=== PATIENT | female | born 1980 | race African-American/Black ===

== ENCOUNTER 2018-11-13 20:26 | Emergency (ER) | payer OTHER ==
[2018-11-13 20:57] VITALS: BMI 25.7
--- NOTE | 2018-11-13 22:02 | PDOC ---
History of Present Illness - General Chief Complaint: Back Pain Stated Complaint: INJURY Time Seen by Provider: 11/13/18 21:37 History Source: Patient Exam Limitations: No Limitations - History of Present Illness Initial Comments: 11/13/18 21:56 38 year old female with no significant medical or surgical history presents with complaints of back injury after being hit by ceiling that fell onto her back. Patient reports ceiling fell onto her back at home. Denies loc, dizziness nausea or vomiting. Severity: reports: moderate Pain Location: reports: back, neck Method of Injury: Yes: direct blow Loss of Consciousness: no loss of consciousness Associated Symptoms (Fall): denies symptoms Past History - Travel Traveled outside of the country in the last 30 days: No Close contact w/someone who was outside of country & ill: No - Past Medical History Allergies/Adverse Reactions: Allergies Allergy/AdvReac Type Severity Reaction Status Date / Time No Known Allergies Allergy Verified 11/13/18 20:58 Home Medications: Ambulatory Orders Bacitracin - [Bacitracin Topical Ointment -] 1 applic TP BID #1 applic 11/13/18 Ibuprofen 600 mg PO TID #20 tablet 11/13/18 Asthma: No Cancer: No Cardiac Disorders: No CVA: No COPD: No CHF: No - Suicide/Smoking/Psychosocial Hx Smoking History: Never smoked Information on smoking cessation initiated: No Hx Alcohol Use: No Drug/Substance Use Hx: No Trauma Specific PMHX - Complaint Specific PMHX Arthritis: No Back Injury: No Neck Injury: No Hx Sacro Iliac Joint Dysfunction: No Review of Systems - Review of Systems Able to Perform ROS?: Yes Is the patient limited Icelandic proficient: No Constitutional: No: Chills, Diaphoresis, Fever, Loss of Appetite, Malaise, Weakness HEENTM: No: Nose Pain, Nose Congestion, Difficulty Swallowing, Mouth Swelling Respiratory: No: Cough, Shortness of Breath, Wheezing Cardiac (ROS): No: Edema ABD/GI: No: Nausea, Poor Appetite : No: Burning, Hematuria, Pain Musculoskeletal: Yes: Back Pain. No: Muscle Pain Integumentary: Yes: Bruising, Erythema Neurological: No: Headache Psychiatric: No: Depression *Physical Exam - Vital Signs Last Vital Signs Temp Pulse Resp BP Pulse Ox 97.2 F L 68 20 101/54 L 99 11/13/18 20:55 11/13/18 20:55 11/13/18 20:55 11/13/18 20:55 11/13/18 20:55 - Physical Exam General Appearance: Yes: Nourished, Appropriately Dressed. No: Apparent Distress HEENT: positive: FELISA, TMs Normal, Pharynx Normal Neck: positive: Supple. negative: Lymphadenopathy (R), Lymphadenopathy (L) Respiratory/Chest: positive: Lungs Clear, Normal Breath Sounds Cardiovascular: positive: Regular Rhythm, Regular Rate, S1, S2 Musculoskeletal: positive: Other (no mid spinal tenderness of spine, able to move all limbs freely.+ rom of shoulder without difficultyr). negative: CVA Tenderness, Vertebral Tenderness Extremity: positive: Normal Capillary Refill, Normal Range of Motion Integumentary: positive: Other (scrapes, abrasion to lateral thoracic area, and right upper arm) Neurologic: positive: cleaner greaser II-XII NML intact, Fully Oriented, Alert ED Treatment Course - RADIOLOGY Radiology Studies Ordered: Category Date Time Status SPINE-CERVICAL (2-3VIEWS) [RAD] Stat Radiology 11/13/18 21:55 Ordered SPINE-LUMBAR SACRAL [RAD] Stat Radiology 11/13/18 21:55 Ordered Medical Decision Making - Medical Decision Making 11/13/18 22:03 38 year old female with no significant medical or surgical history presents with complaints of back injury after being hit by ceiling that fell onto her back. Plan: xray to c-spine and lumbar spine 11/13/18 22:[address] order for follow up call for final results of xray rx: bacitracin *DC/Admit/Observation/Transfer Diagnosis at time of Disposition: Back injury Qualifiers: Encounter type: initial encounter Qualified Code(s): S39.92XA - Unspecified injury of lower back, initial encounter Abrasion of back Qualifiers: Encounter type: initial encounter - Discharge Dispostion Disposition: HOME Condition at time of disposition: Good Decision to Admit order: No - Prescriptions Prescriptions: Bacitracin - [Bacitracin Topical Ointment -] 1 applic TP BID #1 applic Ibuprofen 600 mg PO TID #20 tablet - Referrals Schedule a call back: xray Referrals: Wolf Higgins MD [Primary Care Provider] - - Patient Instructions Printed Discharge Instructions: DI for Low Back Pain Additional Instructions: May apply ice compress to both areas Return to emergency room for bowel or bladder dysfunction, numbness of tingling in limbs Call primary physician for follow up appointment - Post Discharge Activity Forms/Work/School Notes: Back to Work
[2018-11-13 23:06] VITALS: BP 104/58; PULSE 72; TEMP 97.8
== END 2018-11-13 23:06 | disposition home or self-care (01) ==
LOC: JERFT 20:26
DX: S39.82XA Other specified injuries of lower back, initial encounter (principal); W20.8XXA Other cause of strike by thrown, projected or falling object, initial encounter; Y93.89 Activity, other specified; Y92.038 Other place in apartment as the place of occurrence of the external cause; Y99.8 Other external cause status
CPT/HCPCS: 72050-TC-FY; 72100-TC-FY; 99281-25

== ENCOUNTER 2019-01-18 13:51 | Emergency (ER) | payer OTHER ==
[2019-01-18 14:19] VITALS: BP 111/43; PULSE 77; TEMP 98.1; BMI 28.7
[2019-01-18 17:21] LABS: EPI CELLS 1.1 /HPF (0-5/HPF); HYALINE CASTS 3 /lpf (0-8); URINE APPEARANCE CLEAR; URINE BACTERIA 20.6 /hpf (NEGATIVE); URINE BILIRUBIN NEGATIVE (NEGATIVE); URINE COLOR YELLOW; URINE GLUCOSE (UA) NEGATIVE (NEGATIVE); URINE KETONE TRACE (NEGATIVE); URINE LEUK ESTERASE NEGATIVE (NEGATIVE); URINE NITRITE NEGATIVE (NEGATIVE); URINE PROTEIN NEGATIVE (NEGATIVE); URINE RBC 7 /hpf (0-4); URINE WBC 1 /hpf (0-5)
[2019-01-18 17:29] LABS: BASO % 0.5 % (0-2.0); EOS % 2.5 % (0-4.5); HEMATOCRIT 38.2 % (32.4-45.2); LYMPH % 32.5 % (8-40); MCH 31.9 pg (25.7-33.7); MEAN CELL VOLUME 93.9 fl (80-96); MEAN PLT VOLUME 10.8 fl (7.5-11.1); MONO % 7.7 % (3.8-10.2); NEUT % 56.8 % (42.8-82.8); PLATELET COUNT 160 K/MM3 (134-434); RBC 4.06 M/mm3 (3.60-5.2); RDW 13.1 % (11.6-15.6); WHITE BLOOD COUNT 4.2 K/mm3 (4.0-10.0)
[2019-01-18 17:51] LABS: ALBUMIN 3.8 g/dl (3.4-5.0); BILIRUBIN,TOTAL 0.2 mg/dL (0.2-1); BLOOD UREA NITROGEN 8.5 mg/dL (7-18); CALCIUM 8.7 mg/dL (8.5-10.1); CREATININE 0.7 mg/dL (0.55-1.3); TOT PROT 7.2 g/dl (6.4-8.2)
--- NOTE | 2019-01-18 19:10 | PDOC ---
History of Present Illness - General Chief Complaint: Vaginal Bleeding Stated Complaint: VAGINAL BLEEDING Time Seen by Provider: 01/18/19 14:54 History Source: Patient Exam Limitations: No Limitations Past History - Travel Traveled outside of the country in the last 30 days: No Close contact w/someone who was outside of country & ill: No - Past Medical History Allergies/Adverse Reactions: Allergies Allergy/AdvReac Type Severity Reaction Status Date / Time No Known Allergies Allergy Verified 11/13/18 20:58 Home Medications: Ambulatory Orders Bacitracin - [Bacitracin Topical Ointment -] 1 applic TP BID #1 applic 11/13/18 Ibuprofen 600 mg PO TID #20 tablet 11/13/18 Bacitracin - [Bacitracin Topical Ointment -] 1 applic TP BID #1 applic 11/15/18 Ibuprofen 600 mg PO TID #20 tablet 11/15/18 Asthma: No Cancer: No Cardiac Disorders: No CVA: No COPD: No CHF: No - Suicide/Smoking/Psychosocial Hx Smoking History: Never smoked Information on smoking cessation initiated: No Hx Alcohol Use: No Drug/Substance Use Hx: No Review of Systems - Review of Systems Able to Perform ROS?: Yes Comments:: 01/18/19 19:04 CONSTITUTIONAL: Absent: fever, chills, diaphoresis, generalized weakness, malaise, loss of appetite HEENT: Absent: rhinorrhea, nasal congestion, throat pain, throat swelling, difficulty swallowing, mouth swelling, ear pain, eye pain, visual Changes CARDIOVASCULAR: Absent: chest pain, loss of consciousness, palpitations, irregular heart rate, peripheral edema RESPIRATORY: Absent: cough, shortness of breath, dyspnea with exertion, orthopnea, wheezing, stridor, hemoptysis GASTROINTESTINAL: Absent: abdominal pain, abdominal distension, nausea, vomiting, diarrhea, constipation, melena, hematochezia GENITOURINARY: Present: vaginal bleeding Absent: dysuria, frequency, urgency, hesitancy, hematuria, flank pain, genital pain MUSCULOSKELETAL: Absent: myalgia, arthralgia, joint swelling SKIN: Absent: rash, itching, pallor HEMATOLOGIC/IMMUNOLOGIC: Absent: easy bleeding, easy bruising, lymphadenopathy, frequent infections ENDOCRINE: Absent: unexplained weight gain, unexplained weight loss, heat intolerance, cold intolerance NEUROLOGIC: Absent: headache, focal weakness or paresthesias, dizziness, unsteady gait, seizure, mental status changes, bladder or bowel incontinence PSYCHIATRIC: Absent: anxiety, depression, suicidal or homicidal ideation, hallucinations. Is the patient limited Portuguese proficient: No *Physical Exam - Vital Signs Last Vital Signs Temp Pulse Resp BP Pulse Ox 98.1 F 77 16 111/43 L 100 01/18/19 14:16 01/18/19 14:16 01/18/19 14:16 01/18/19 14:16 01/18/19 14:16 - Physical Exam Comments: 01/18/19 19:34 GENERAL: Well developed, well nourished. Awake and alert. No acute distress. HEENT: Normocephalic, atraumatic. PERRLA, EOMI. No conjunctival pallor. Sclera are non- icteric. Moist mucous membranes. Oropharynx is clear. NECK: Supple. Full ROM. No JVD. Carotid pulses 2+ and symmetric, without bruits. No thyromegaly. No lymphadenopathy. CARDIOVASCULAR: Regular rate and rhythm. No murmurs, rubs, or gallops. Distal pulses are 2+ and symmetric. PULMONARY: No evidence of respiratory distress. Lungs clear to auscultation bilaterally. No wheezing, rales or rhonchi. ABDOMINAL: Soft. Non-tender. Non-distended. No rebound or guarding. No organomegaly. Normoactive bowel sounds. MUSCULOSKELETAL Normal range of motion at all joints. No bony deformities or tenderness. No CVA tenderness. EXTREMITIES: No cyanosis. No clubbing. No edema. No calf tenderness. SKIN: Warm and dry. Normal capillary refill. No rashes. No jaundice. NEUROLOGICAL: Alert, awake, appropriate. Cranial nerves 2-12 intact. No deficits to light touch and temperature in face, upper extremities and lower extremities. No motor deficits in the in face, upper extremities and lower extremities. Normoreflexic in the upper and lower extremities. Normal speech. Toes are down- going bilaterally. Gait is normal without ataxia. PSYCHIATRIC: Cooperative. Good eye contact. Appropriate mood and affect. ED Treatment Course - LABORATORY CBC & Chemistry Diagram: 01/18/19 17:05 01/18/19 17:05 - ADDITIONAL ORDERS Additional order review: Laboratory Results 01/18/19 01/18/19 01/18/19 17:05 17:05 15:05 Sodium 143 Potassium 4.0 Chloride 109 H Carbon Dioxide 28 Anion Gap 5 L BUN 8.5 Creatinine 0.7 Est GFR (CKD-EPI)AfAm 125.61 Est GFR (CKD-EPI)NonAf 108.38 Random Glucose 101 Calcium 8.7 Total Bilirubin 0.2 AST 6 L ALT 17 Alkaline Phosphatase 54 Total Protein 7.2 Albumin 3.8 Beta HCG, Quant 27.8 Urine Color Yellow Urine Appearance Clear Urine pH 5.0 Ur Specific [place] 1.031 Urine Protein Negative Urine Glucose (UA) Negative Urine Ketones Trace H Urine Blood 2+ H Urine Nitrite Negative Urine Bilirubin Negative Urine Urobilinogen 1.0 Ur Leukocyte Esterase Negative Urine WBC (Auto) 1 Urine RBC (Auto) 7 Urine Casts (Auto) 3 U Epithel Cells (Auto) 1.1 Urine Bacteria (Auto) 20.6 Blood Type B POSITIVE Antibody Screen Negative 01/18/19 17:05 RBC 4.06 MCV 93.9 MCHC 34.0 RDW 13.1 MPV 10.8 Neutrophils % 56.8 Lymphocytes % 32.5 Monocytes % 7.7 Eosinophils % 2.5 Basophils % 0.5 - RADIOLOGY Radiology Studies Ordered: Category Date Time Status TRANSVAGINAL US PREG [US] Stat Ultrasound 01/18/19 14:55 Taken Medical Decision Making - Medical Decision Making 01/18/19 19:34 The patient is a 38-year-old female, , LMP 12/13/18, who presents to the ER today for vaginal bleeding. The patient states she took a home test and that was positive. She states that she saw some dark red blood from the vaginal canal last night. She states that the bleeding has since stopped. She denies abdominal pain. Denies fevers, chills, nausea, vomiting and diarrhea. A/P: Vaginal bleeding On exam abdomen is soft nontender with no rebound guarding or tenderness. Patient defers pelvic exam Patient is blood type B positive Basic labs show no WBC count, beta of 28. Given last special cycle of December 13, possibly a very early anywhere from 2-4 weeks. Ultrasound obtained. Does not show evidence of a at this time. However since this is a very early recommending serial beta hCG. Results discussed with the patient and she understands she has follow-up with her CAN[employer]ERY TENDER ENGINEER tomorrow. Differential diagnosis: Miscarriage versus early . Discharge home I discussed the physical exam findings, ancillary test results and final diagnoses with the patient. I answered all of the patient's questions. The patient was satisfied with the care received and felt comfortable with the discharge plan and treatment plan. The Patient agrees to follow up with the primary care physician/specialist within 24-72 hours. Return precautions were given. *DC/Admit/Observation/Transfer Diagnosis at time of Disposition: Vaginal bleeding - Discharge Dispostion Disposition: HOME Condition at time of disposition: Stable Decision to Admit order: No - Referrals Referrals: Wolf Higgins MD [Primary Care Provider] - - Patient Instructions Printed Discharge Instructions: DI for Vaginal Bleeding During Additional Instructions: Your ultrasound today did not show evidence of a However based on her last menstrual cycle you are only 2-4 weeks. It is on determined if you had a miscarriage versus an early . Please follow up with her CANNERY TENDER ENGINEER tomorrow for serial blood tests. Return to the ER for worsening abdominal pain, vomiting, increased vaginal bleeding, or if you have any changes in your symptoms. - Post Discharge Activity
== END 2019-01-18 19:49 | disposition home or self-care (01) ==
LOC: JER 13:51
DX: N93.9 Abnormal uterine and vaginal bleeding, unspecified (principal)
CPT/HCPCS: 36415; 76817-TC; 80053; 81003; 84702; 85025; 86850; 86900; 86901; 99281-25